=== PATIENT | female | born 1960 | race African-American/Black ===

== ENCOUNTER 2017-12-01 13:41 | Emergency (ER) | payer BC ==
[2017-12-01] MEDS: DIPHTH/TET/ACEL PERTUSS (ADULT) 0.5 ML VIAL IM* (14:14)
== END 2017-12-01 14:54 | disposition home or self-care (01) ==
LOC: E/R 13:41
DX: Z23 Encounter for immunization (principal)
CPT/HCPCS: 90471; 90715; 99281-25

== ENCOUNTER 2018-04-08 09:11 | Emergency (ER) | payer BC | END 2018-04-08 09:52 | disposition home or self-care (01) | LOC: E/R 09:52 | DX: Z00.00 Encounter for general adult medical examination without abnormal findings (principal); R76.11 Nonspecific reaction to tuberculin skin test without active tuberculosis | CPT/HCPCS: 71045; 99283-25 ==

== ENCOUNTER 2018-09-30 11:51 | Emergency (ER) | payer BC ==
[2018-09-30] MEDS ORDERED: ONDANSETRON 4 MG INJ IV (12:22)
[2018-09-30] MEDS ORDERED: SOD CHLORIDE 0.9% 500 ML IV (12:22)
[2018-09-30] MEDS ORDERED: morphine 4 MG/ML VIAL IV (12:22)
== END 2018-09-30 15:10 | disposition home or self-care (01) ==
LOC: E/R 11:51
DX: S06.0X0A Concussion without loss of consciousness, initial encounter (principal); V49.00XA Driver injured in collision with unspecified motor vehicles in nontraffic accident, initial encounter
CPT/HCPCS: 70450; 99284-25